=== PATIENT | male | born 1945 | race Caucasian/White ===

== ENCOUNTER 2018-12-30 19:25 | Inpatient (IN) | payer MEDICARE ==
[~2018-12-30] VITALS: Ht 177.8 cm; Wt 127.2 kg
--- NOTE | 2018-12-30 19:50 | NUR ---
Patient bib pvt ambulance from [facility] for med clearance. A/Ox4. Speech clear, speaks in complete sentences. No neuro deficits. Respiratory even and unlabored, no cough no sob. No cardiovascular distress noted. No GI/ distress noted. Patient in bed at lowest position, sr upx2, call light within reach. Fall precautions implemented per protocol.
[2018-12-30 20:06] LABS: BASOPHILS # (AUTO) 0.1 K/uL (0.0-8.0); BASOPHILS % (AUTO) 0.5 % (0.0-2.0); EOSINOPHILS # (AUTO) 0.5 K/uL (0.0-0.7); EOSINOPHILS % (AUTO) 4.8 % (0.0-7.0); HEMATOCRIT 38.5 % (36.7-47.1); LYMPHOCYTES # (AUTO) 2.2 K/uL (20.0-40.0); LYMPHOCYTES % (AUTO) 21.7 % (20.5-51.5); MEAN CORPUSCULAR HEMOGLOBIN 32.1 uug (23.8-33.4); MEAN CORPUSCULAR HGB CONC 34 g/dL (32.5-36.3); MEAN CORPUSCULAR VOLUME 95.2 fL (73.0-96.2); MONOCYTES # (AUTO) 1.5 K/uL (2.0-10.0); MONOCYTES % (AUTO) 14.9 % (0.0-11.0); NEUTROPHILS # (AUTO) 5.8 K/uL (1.8-8.9); NEUTROPHILS % (AUTO) 58.1 % (38.5-71.5); PLATELET COUNT (AUTO) 235 K/uL (152-348); RED BLOOD CELL COUNT(AUTO) 4.05 MIL/uL (4.06-5.63)
[2018-12-30 20:13] LABS: CARBON DIOXIDE 21 mmol/L (21-32); CHLORIDE 106 mmol/L (98-107); CREATININE 2.8 mg/dL (0.6-1.3); GLUCOSE 160 mg/dL (74-106); POTASSIUM 4.1 mmol/L (3.5-5.1); UREA NITROGEN, BLOOD 36 mg/dL (7-18)
[2018-12-30 20:19] LABS: ALANINE AMINOTRANSFERASE 15 U/L (16-63); ALKALINE PHOSPHATASE 75 U/L (50-136); ASPARTATE AMINOTRANSFERASE 10 U/L (15-37); BILIRUBIN,DIRECT 0.1 mg/dL (0.0-0.2); BILIRUBIN,TOTAL 0.5 mg/dL (0.2-1.0); ETHANOL < 3 MG/DL (0-0)
[2018-12-30 20:21] LABS: ACETAMINOPHEN < 2.0 ug/mL (10-30)
[2018-12-30] MEDS ORDERED: MAGN400O6 PO (20:21)
[2018-12-30] MEDS ORDERED: METO50TA16 PO (20:21)
[2018-12-30] MEDS ORDERED: POLY17PO4 PO (20:21)
[2018-12-30] MEDS ORDERED: SERT50TA PO (20:21)
[2018-12-30] MEDS ORDERED: TAMS-3 PO (20:21)
[2018-12-30] MEDS ORDERED: BISA10SU61 RC (20:21)
[2018-12-30] MEDS ORDERED: DOCU-141 PO (20:21)
[2018-12-30] MEDS ORDERED: IPRA3AMP22 IH (20:21)
[2018-12-30] MEDS ORDERED: LACT1TAB12 PO (20:21)
--- NOTE | 2018-12-30 20:41 | NUR ---
Jayy Priest here for evaluation.
[2018-12-30 20:42] LABS: THYROID STIMULATING HORMONE 2.676 mIU/mL (0.358-3.740)
--- NOTE | 2018-12-30 22:26 | NUR ---
Report given to BRODY Posada
[2018-12-30 22:31] LABS: *BILIRUBIN,URIN NEGATIVE (NEGATIVE); *BLOOD, URINE NEGATIVE (NEGATIVE); *CLARITY,URINE CLEAR (CLEAR); *COLOR,URINE YELLOW (YELLOW); *KETONES,URINE NEGATIVE (NEGATIVE); *UROBILINOGEN,URINE 0.2 E.U./dl (NORMAL); LEUKOCYTE ESTERASE ,URINE NEGATIVE (NEGATIVE); NITRITE, URINE NEGATIVE (NEGATIVE); PH,URINE 5.5 (5.0-8.0); UGLUCOSE NEGATIVE (NEGATIVE)
--- NOTE | 2018-12-30 22:39 | NUR ---
Patient transported to [facility]HU in stable condition.
[2018-12-30 22:44] LABS: BACTERIA,URINE NONE SEEN /HPF (NONE SEEN); RBC,URINE 0-3 /HPF (0-3); SQUAMOUS EPITHELIAL CELL,UR FEW /HPF (NONE SEEN)
[2018-12-30 22:46] LABS: *AMPHETAMINE, URINE NEGATIVE (NEGATIVE); *BARBITURATE, URINE NEGATIVE (NEGATIVE); *CANNABINOID, URINE NEGATIVE (NEGATIVE); *COCCAINE, URINE NEGATIVE (NEGATIVE); *OPIATE, URINE NEGATIVE (NEGATIVE); *PHENCYCLIDINE SCREEN,URINE NEGATIVE (NEGATIVE)
[2018-12-30 23:00] VITALS: BP 130/85
[2018-12-31] MEDS ORDERED: DOCUSATE SODIUM 100 MG CAPSULE PO PRN (00:45)
[2018-12-31] MEDS ORDERED: MIRALAX 17 GM POWD.PACK PO PRN (00:45)
[2018-12-31] MEDS ORDERED: ALBUTEROL SULFATE 2.5 MG/3 ML NEBU NEB PRN (00:45)
--- NOTE | 2018-12-31 01:07 | NUR ---
received to care, from the emergency room, on a voluntary admission, a transfer from the [facility]. according to the chart, he has been depressed, non compliant with care, refusing to shower, or accept help with hygiene. upon arrival, he denied SI, or the desire to harm himself. he agreed to contract for safety, while in the hospital. he appeared disheveled, but pleasant. cooperative with interview. he was assisted to bed at 2300, and went right to sleep. no distress noted.
[2018-12-31] MEDS ORDERED: MAGNESIUM HYDROXIDE 30 ML LIQUID UDC PO PRN (04:45)
[2018-12-31] MEDS ORDERED: TEMAZEPAM 7.5 MG CAPSULE PO PRN (04:45)
[2018-12-31] MEDS ORDERED: ACETAMINOPHEN 325 MG TABLET PO PRN (04:45)
[2018-12-31] MEDS ORDERED: MAG HYDROX/AL HYDROX/SIMETH 30 ML LIQUID UDC PO PRN (04:45)
[2018-12-31 07:30] VITALS: BP 133/86
[2018-12-31] MEDS: ACIDOPHILUS/BULGARICUS CHEW TAB PO SCH ×2 (08:13→16:02)
[2018-12-31] MEDS: METOPROLOL TARTRATE 50 MG TABLET PO SCH ×2 (08:15→21:44)
[2018-12-31] MEDS ORDERED: Medication Not On Formulary EA (Lactobacillus Acidophilus (Acidophilus) 1 EACH) PO SCH (09:00)
--- NOTE | 2018-12-31 11:50 | NUR ---
Initial Discharge Planning: Patient currently resides at [facility] [[address] [place] [address]; ]. Per Hospitality Coordinator Barrera, patient will be accepted back upon discharge although he does not have a bed hold. Patient spouse Marlene Yee [[phone]] agreeable with patient returning to facility upon discharge. Licensed Nurse Practitioner will continue to meet with patient, and collaborate with patient, family, and MD on a safe and proper discharge plan.
--- NOTE | 2018-12-31 13:45 | NUR ---
Social Work Note: This writer producer contacted patient spouse Marlene Yee [[phone]] to gather collateral information regarding patient's history. Patient spouse noted to be hyperverbal and grandiose during phone call in spite of constant redirection from this writer producer. 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 Human Services Worker provided education to spouse regarding average length of stay of patient contingent on patient progress and discussed role of Human Services Worker in discharge planning and providing appropriate referrals for patient. Spouse continued to verbalize patient and her have an IQ of a genius and stated patient had a longer stay at [facility] and that she expects the same at [facility]. After remaining on the phone with spouse for about 22 minutes, this writer producer attempted to politely end call by telling spouse I had a meeting to attend to - patient spouse remained hyperverbal and refusing to hang up. cabinet worker reassured her this writer producer would have MD call her back for any medication questions and politely ended the call.
[2018-12-31 15:07] VITALS: BP 126/58
--- NOTE | 2018-12-31 18:45 | NUR ---
GPS: RECEIVED PATIENT AOX2 PATIENT AMBULATORY AND SELF CARE , COMPLIANT WITH MEDICATION, PATIENT WAS ABLE TO TALK WITH ON THE PHONE, PATIENT REMAINS ISOLATIVE AND STAYS IN HIS ROOM, SEEN AND EXAMINED BY DR. FORD, WILL CONTINUE MONITOR
[2018-12-31 21:36] VITALS: BP 129/73
[2018-12-31] MEDS: ESCITALOPRAM OXALATE 10 MG TABLET PO SCH (21:44)
[2018-12-31] MEDS: TAMSULOSIN HCL 0.4 MG CAP.SR.24H PO SCH (21:44)
--- NOTE | 2018-12-31 22:00 | NUR ---
received to care, lying bed, asleep. easily awakened, but minimally interactive. denies SI, but states he feels depressed. compliant with medications and staff direction. as of 2199, he appears to be asleep. no distress noted. will continue to monitor closely.
--- NOTE | 2018-12-31 22:00 | NUR ---
slept 7.5 hours, total. continues to sleep. no distress noted. Addendum: 01/01/19 at 0632 by JASVIR GAMBOA LVN error/ wrong time documented
--- NOTE | 2019-01-01 06:00 | NUR ---
slept 7.5 hours, total. continues to sleep. no distress noted
[2019-01-01 07:30] VITALS: BP 154/93
[2019-01-01] MEDS: CLONAZEPAM 0.5 MG TABLET PO PRN (08:00)
[2019-01-01] MEDS: ACIDOPHILUS/BULGARICUS CHEW TAB PO SCH ×2 (08:00→16:29)
[2019-01-01] MEDS: METOPROLOL TARTRATE 50 MG TABLET PO SCH ×2 (08:00→20:42)
--- NOTE | 2019-01-01 09:46 | NUR ---
GPS: RECEIVED PATIENT AOX2, PATIENT ANXIOUS AND VERBALIZES" IM NOT FEELING WELL , MY STOMACH TROUBLING ME" PRN MEDICATION GIVEN, REPORTED TO CHARGE NURSE REGARDING BED DONT HAVE LOCK AND BEEN MOVING, CALLED AND SPOKE WITH HOUSE KEEPING AND ENGINEERING TO FIX THE BED, WILL CONTINUE MONITOR, PATIENT REMAINS ON BED , WILL CONTINUE MONITOR
--- NOTE | 2019-01-01 12:50 | NUR ---
called and spoke with AP regarding patients urine culture , orders made and carried out
[2019-01-01] MEDS: CEphaleXIN 250 MG CAPSULE PO SCH ×2 (13:10→21:52)
[2019-01-01] MEDS ORDERED: CEPHALEXIN MONOHYDRATE 125 MG/5 ML SUSPENSION 100ML NG SCH (14:00)
[2019-01-01 16:00] VITALS: BP 108/86
[2019-01-01 16:00] LABS: *BILIRUBIN,URIN NEGATIVE (NEGATIVE); *BLOOD, URINE NEGATIVE (NEGATIVE); *CLARITY,URINE CLEAR (CLEAR); *COLOR,URINE YELLOW (YELLOW); *KETONES,URINE NEGATIVE (NEGATIVE); *UROBILINOGEN,URINE 0.2 E.U./dl (NORMAL); LEUKOCYTE ESTERASE ,URINE NEGATIVE (NEGATIVE); NITRITE, URINE NEGATIVE (NEGATIVE); PH,URINE 5.5 (5.0-8.0); UGLUCOSE NEGATIVE (NEGATIVE)
[2019-01-01 16:08] LABS: *CREATININE,URINE 129.6 mg/dL (30-125); *URINE TOTAL PROTEIN RANDOM 69.2 mg/dL (<150/24HR)
--- NOTE | 2019-01-01 16:38 | NUR ---
GPS: PATIENT REMAIN CALM COOPERATIVE, COMPLIANT WITH MEDICATION, PATIENT STARTED ON ATB THERAPY , NO S/E NOTED, PATIENT ABLE TO TOLERATE MEDICINE, COLLECTED URINE SPECIMEN FOR UA ORDERED BY DR. HINKLE, WILL CONTINUE MONITOR
[2019-01-01 16:58] LABS: COARSE GRANULAR CASTS,URINE 0-3 /LPF; MUCUS,URINE FEW /LPF (0-FEW); SQUAMOUS EPITHELIAL CELL,UR FEW /HPF (NONE SEEN); WBC,URINE 0-3 /HPF (0-3)
[2019-01-01 20:34] VITALS: BP 118/64
[2019-01-01] MEDS: ESCITALOPRAM OXALATE 10 MG TABLET PO SCH (20:41)
[2019-01-01] MEDS: TAMSULOSIN HCL 0.4 MG CAP.SR.24H PO SCH (20:41)
--- NOTE | 2019-01-01 21:12 | NUR ---
PATIENT RECEIVED IN BED AWAKE. PATIENT AOX1-2, PATIENT COMPLIANT WITH MEDICATION, PATIENT EASILY IRRITATED, PATIENTS ANXIOUS ABOUT BEING IN THE HOSPITAL. PATIENT IS ISOLATIVE AND WITHDRAWN. WILL CONTINUE TO MONITOR. PATIENT DENIES PAIN AT THIS TIME, WILL CONTINUE TO MONITOR. BED IN LOWEST POSITION, BED LOCKED, AND BED ALARM ON WHILE IN BED.
[2019-01-02 06:09] LABS: BASOPHILS % (AUTO) 0.5 % (0.0-2.0); EOSINOPHILS # (AUTO) 0.4 K/uL (0.0-0.7); EOSINOPHILS % (AUTO) 5.1 % (0.0-7.0); HEMATOCRIT 37.4 % (36.7-47.1); HEMOGLOBIN 12.8 g/dL (12.5-16.3); LYMPHOCYTES # (AUTO) 1.8 K/uL (20.0-40.0); LYMPHOCYTES % (AUTO) 20.8 % (20.5-51.5); MEAN CORPUSCULAR HGB CONC 34 g/dL (32.5-36.3); MONOCYTES # (AUTO) 1.1 K/uL (2.0-10.0); MONOCYTES % (AUTO) 12.3 % (0.0-11.0); NEUTROPHILS # (AUTO) 5.3 K/uL (1.8-8.9); NEUTROPHILS % (AUTO) 61.3 % (38.5-71.5); PLATELET COUNT (AUTO) 250 K/uL (152-348); RED BLOOD CELL COUNT(AUTO) 3.98 MIL/uL (4.06-5.63); WHITE BLOOD COUNT (AUTO) 8.6 K/uL (3.6-10.2)
[2019-01-02 06:15] LABS: ALANINE AMINOTRANSFERASE 16 U/L (16-63); ALKALINE PHOSPHATASE 74 U/L (50-136); ASPARTATE AMINOTRANSFERASE 11 U/L (15-37); BILIRUBIN,TOTAL 0.8 mg/dL (0.2-1.0); CARBON DIOXIDE 23 mmol/L (21-32); CHLORIDE 108 mmol/L (98-107); CREATINE KINASE, TOTAL 29 U/L (39-308); CREATININE 2.7 mg/dL (0.6-1.3); GLUCOSE 110 mg/dL (74-106); MAGNESIUM 2.2 mg/dL (1.8-2.4); PHOSPHOROUS 4.1 mg/dL (2.5-4.9); POTASSIUM 4.4 mmol/L (3.5-5.1); TOTAL PROTEIN, SERUM 7.2 g/dL (6.4-8.2); UREA NITROGEN, BLOOD 35 mg/dL (7-18)
[2019-01-02] MEDS: CEphaleXIN 250 MG CAPSULE PO SCH ×3 (06:21→21:28)
[2019-01-02 07:30] VITALS: BP 142/86
[2019-01-02] MEDS: ASPIRIN 81 MG TAB.CHEW PO SCH (08:45)
[2019-01-02] MEDS: METOPROLOL TARTRATE 50 MG TABLET PO SCH ×2 (08:45→21:00)
[2019-01-02] MEDS: ACIDOPHILUS/BULGARICUS CHEW TAB PO SCH ×2 (08:45→17:39)
--- NOTE | 2019-01-02 10:00 | NUR ---
Gps/Administration Manager- Patient positive for MRSA nares, Permit Agent was informed ,orders received for bactroban suleman. apply to nares as ordered. Contact isolation observed and in progress.
[2019-01-02 16:00] VITALS: BP 125/67
[2019-01-02] MEDS: MUPIROCIN 2% OINT 22 GM TUBE NS SCH ×2 (17:45→20:07)
--- NOTE | 2019-01-02 18:34 | NUR ---
Gps/Butcher Scullion- Will be transfered to room # 315, report was given to Charis Hodges.
--- NOTE | 2019-01-02 20:00 | NUR ---
AWAKE, ALERT IRRITABLE WANT TO BE LEFT ALONE,MEDICATION GIVEN.MRSA OF THE NARES OBSERVED.
[2019-01-02] MEDS: TAMSULOSIN HCL 0.4 MG CAP.SR.24H PO SCH (20:08)
[2019-01-02] MEDS: ESCITALOPRAM OXALATE 10 MG TABLET PO SCH (21:28)
[2019-01-02 22:22] VITALS: BP 129/60
[2019-01-03] MEDS: CEphaleXIN 250 MG CAPSULE PO SCH (05:49)
--- NOTE | 2019-01-03 06:23 | NUR ---
SLEPT MOST OF THE NITE, NO COMPLAINTS MADE.
--- NOTE | 2019-01-03 08:00 | NUR ---
Awake, alert, oriented x 4, verbalized feeling bad. Agreed to vital signs monitoring and went back to sleep
[2019-01-03] MEDS: ACIDOPHILUS/BULGARICUS CHEW TAB PO SCH ×2 (10:31→17:51)
[2019-01-03] MEDS: ASPIRIN 81 MG TAB.CHEW PO SCH (10:31)
[2019-01-03] MEDS: MUPIROCIN 2% OINT 22 GM TUBE NS SCH ×2 (10:32→21:00)
[2019-01-03] MEDS: METOPROLOL TARTRATE 50 MG TABLET PO SCH ×2 (10:32→21:00)
[2019-01-03] MEDS: SULFAMETH/TRIMETH 800/160 MG TABLET PO SCH ×2 (12:34→22:01)
[2019-01-03] MEDS: CLONAZEPAM 0.5 MG TABLET PO PRN ×2 (12:34→17:51)
--- NOTE | 2019-01-03 12:35 | NUR ---
Verbalized not feeling well and anxious. Klonopin po given.
[2019-01-03 13:06] LABS: ALBUMIN 3.2 g/dL (2.9-4.4); ALPHA-1-GLOBULIN 0.2 g/dL (0.0-0.4); ALPHA-2-GLOBULIN 0.8 g/dL (0.4-1.0); BETA GLOBULIN 0.8 g/dL (0.7-1.3); GAMMA GLOBULIN 1.5 g/dL (0.4-1.8); GLOBULIN, TOTAL 3.3 g/dL (2.2-3.9); M-SPIKE 1.1 g/dL (Not Observed)
[2019-01-03 16:00] VITALS: BP 144/82
--- NOTE | 2019-01-03 18:00 | NUR ---
Feeling anxious again, Klonopin po given. Resting after
[2019-01-03 19:30] VITALS: BP 99/58
--- NOTE | 2019-01-03 20:00 | NUR ---
Patient received resting in bed, resting comfortably. Patient has no complaints of pain or discomfort at this time. Patient is calm and cooperative. Alls safety and fall precaution measures are in place. Call light and personal items are within reach at all times. Will continue to monitor.
--- NOTE | 2019-01-03 21:00 | NUR ---
Withheld prescribed BP medication due to low BP results: 99/58 HR 75.
[2019-01-03] MEDS: TAMSULOSIN HCL 0.4 MG CAP.SR.24H PO SCH (22:02)
[2019-01-03] MEDS: ESCITALOPRAM OXALATE 10 MG TABLET PO SCH (22:02)
--- NOTE | 2019-01-04 03:45 | NUR ---
Patient's called to get update regarding patient's stay. Information was provided, as requested. Nurse informed patient of 's call
--- NOTE | 2019-01-04 07:00 | NUR ---
Patient slept comfortably throughout night with no complaints of pain or acute distress/anxiety. VS are wnl and patient is stable. Patient has been compliant with all care and cooperative. All safety and fall precaution measures remain in place.
--- NOTE | 2019-01-04 07:30 | NUR ---
Patient received resting in bed calm and comfortable with no signs of distress ; patient has stable vital signs. Patient call light with in reach ; all safety devices in place.
[2019-01-04] MEDS: ACIDOPHILUS/BULGARICUS CHEW TAB PO SCH ×2 (09:02→18:06)
[2019-01-04] MEDS: ASPIRIN 81 MG TAB.CHEW PO SCH (09:02)
[2019-01-04] MEDS: MUPIROCIN 2% OINT 22 GM TUBE NS SCH ×2 (09:02→20:40)
[2019-01-04] MEDS: SULFAMETH/TRIMETH 800/160 MG TABLET PO SCH ×2 (09:02→20:38)
[2019-01-04] MEDS: METOPROLOL TARTRATE 50 MG TABLET PO SCH ×2 (09:12→09:21)
[2019-01-04 14:00] VITALS: BP 122/72
--- NOTE | 2019-01-04 19:11 | NUR ---
Patient calm and comfortable with no signs of distress. Patient request to speak to multiple times through out day. Patient medication compliant.
--- NOTE | 2019-01-04 20:00 | NUR ---
Report received. Patient is Awake and fully oriented. Presents unkempt and anxious. Denies SI and plan, denies HI, VH, AH. Reports no improvement in depression. Aware of UTI and MRSA status.
[2019-01-04] MEDS: ESCITALOPRAM OXALATE 10 MG TABLET PO SCH (20:38)
[2019-01-04] MEDS: TAMSULOSIN HCL 0.4 MG CAP.SR.24H PO SCH (20:38)
[2019-01-04] MEDS: METOPROLOL TARTRATE 25 MG TABLET PO SCH ×2 (20:39→20:59)
[2019-01-04 20:58] VITALS: BP 102/40
[2019-01-04] MEDS ORDERED: METOPROLOL TARTRATE 50 MG TABLET PO SCH (21:00)
--- NOTE | 2019-01-04 21:19 | NUR ---
bullpressor held for low BP 102/42
--- NOTE | 2019-01-04 21:30 | NUR ---
patient spoke with the on the phone, appears more anxious and agitated after the call. Was unhappy that she called.
[2019-01-04 21:48] VITALS: BP 122/73
--- NOTE | 2019-01-04 21:50 | NUR ---
BP rechecked: 122/73. patient claims he does not need to be on BP meds, refuses to take lopressor. Appears anxious, easily agitated, frustrated. Comfort and safety measures are in place.
--- NOTE | 2019-01-05 06:15 | NUR ---
Patient slept through the shift. Used urinal several times. No distress noted. Safety measures are in place.
[2019-01-05 08:00] VITALS: BP 138/72
--- NOTE | 2019-01-05 08:11 | NUR ---
Patient calm and comfortable with no signs of distress ; Patient called in the morning to speak to . Patient will continue to monitored.
[2019-01-05] MEDS: SULFAMETH/TRIMETH 800/160 MG TABLET PO SCH ×2 (08:37→20:00)
[2019-01-05] MEDS: MUPIROCIN 2% OINT 22 GM TUBE NS SCH ×2 (08:37→20:08)
[2019-01-05] MEDS: ACIDOPHILUS/BULGARICUS CHEW TAB PO SCH ×2 (08:37→18:15)
[2019-01-05] MEDS: ASPIRIN 81 MG TAB.CHEW PO SCH (08:37)
[2019-01-05 12:00] VITALS: BP 119/64
--- NOTE | 2019-01-05 19:30 | NUR ---
Patient calm and comfortable with no signs of distress; patient vital signs stable and has call light by bedside and safety devices with in reach.
[2019-01-05 19:59] VITALS: BP 124/88
[2019-01-05] MEDS: ESCITALOPRAM OXALATE 10 MG TABLET PO SCH (20:00)
[2019-01-05] MEDS: TAMSULOSIN HCL 0.4 MG CAP.SR.24H PO SCH ×2 (20:00→20:08)
[2019-01-05] MEDS: METOPROLOL TARTRATE 25 MG TABLET PO SCH (20:01)
--- NOTE | 2019-01-05 20:09 | NUR ---
patient was found resting in bed, fully oriented, denies pain, SOB, SI. Reports improvement in depression, declined snacks and beverages offer. Refused Flomax and Lopressor. Otherwise compliant with treatment plan. Comfort and safety provided.
--- NOTE | 2019-01-05 21:16 | NUR ---
New order for Lab and radiology came in. Patient refused x-rays and labs, asked to come back in the morning.
--- NOTE | 2019-01-06 07:00 | NUR ---
Patient slept through the shift. Used urinal several times. No distress noted. Patient refused lab draw this morning, asked to be drawn later. patient reports improving in depression. Safety measures are in place. Addendum: 01/06/19 at 0702 by MISHEL FOLEY RN refused snacks and beverages
--- NOTE | 2019-01-06 07:30 | NUR ---
RECEIVED PATIENT LAYING IN BED, ASLEEP. NO DISTRESS NOTED AT THIS TIME. BED IN LOWEST POSITION, SIDE RAILS UP X2,WILL CONTINUE TO MONITOR.
[2019-01-06] MEDS: CLONAZEPAM 0.5 MG TABLET PO PRN (08:37)
[2019-01-06] MEDS: SULFAMETH/TRIMETH 800/160 MG TABLET PO SCH ×2 (08:37→21:02)
[2019-01-06] MEDS: ACIDOPHILUS/BULGARICUS CHEW TAB PO SCH ×2 (08:38→17:00)
[2019-01-06] MEDS: ASPIRIN 81 MG TAB.CHEW PO SCH (08:38)
[2019-01-06] MEDS: MUPIROCIN 2% OINT 22 GM TUBE NS SCH ×2 (08:38→21:07)
[2019-01-06 08:57] LABS: BASOPHILS # (AUTO) 0.1 K/uL (0.0-8.0); BASOPHILS % (AUTO) 0.6 % (0.0-2.0); EOSINOPHILS # (AUTO) 0.3 K/uL (0.0-0.7); EOSINOPHILS % (AUTO) 3.4 % (0.0-7.0); HEMATOCRIT 40.4 % (36.7-47.1); HEMOGLOBIN 13.8 g/dL (12.5-16.3); LYMPHOCYTES # (AUTO) 2.1 K/uL (20.0-40.0); LYMPHOCYTES % (AUTO) 21.7 % (20.5-51.5); MEAN CORPUSCULAR HEMOGLOBIN 32.6 uug (23.8-33.4); MEAN CORPUSCULAR HGB CONC 34 g/dL (32.5-36.3); MEAN CORPUSCULAR VOLUME 95.2 fL (73.0-96.2); MONOCYTES # (AUTO) 1.1 K/uL (2.0-10.0); NEUTROPHILS # (AUTO) 5.9 K/uL (1.8-8.9); NEUTROPHILS % (AUTO) 62.3 % (38.5-71.5); PLATELET COUNT (AUTO) 256 K/uL (152-348); RED BLOOD CELL COUNT(AUTO) 4.24 MIL/uL (4.06-5.63); WHITE BLOOD COUNT (AUTO) 9.5 K/uL (3.6-10.2)
[2019-01-06 09:07] LABS: ALANINE AMINOTRANSFERASE 16 U/L (16-63); ALKALINE PHOSPHATASE 84 U/L (50-136); ASPARTATE AMINOTRANSFERASE 10 U/L (15-37); BILIRUBIN,TOTAL 0.7 mg/dL (0.2-1.0); CARBON DIOXIDE 21 mmol/L (21-32); CHLORIDE 107 mmol/L (98-107); CREATININE 3.2 mg/dL (0.6-1.3); GLUCOSE 102 mg/dL (74-106); POTASSIUM 4.3 mmol/L (3.5-5.1); TOTAL PROTEIN, SERUM 7.7 g/dL (6.4-8.2); UREA NITROGEN, BLOOD 32 mg/dL (7-18)
--- NOTE | 2019-01-06 18:24 | NUR ---
PATIENT SLEPT THROUGHOUT SHIFT. NO DISTRESS NOTED THROUGHOUT SHIFT. PATIENT REFUSED SHOWER. PATIENT REFUSED SOME MEDICATIONS.
--- NOTE | 2019-01-06 19:00 | NUR ---
Patient received awake in bed, with at bedside . Safety check done. Patient seems guarded and anxious at this time. is waiting for oncologist to arrive for further instructions. will continue to monitor.
[2019-01-06 20:00] VITALS: BP 134/80
[2019-01-06] MEDS: TAMSULOSIN HCL 0.4 MG CAP.SR.24H PO SCH (21:00)
[2019-01-06] MEDS: METOPROLOL TARTRATE 25 MG TABLET PO SCH (21:00)
[2019-01-06] MEDS: ESCITALOPRAM OXALATE 10 MG TABLET PO SCH (21:02)
--- NOTE | 2019-01-06 21:45 | NUR ---
Dr. Fox Oncologist came to speak to patient and regarding bone scan and reason of r/o multiple myeloma. Despite explanation and patient refuses to do bone scan.
--- NOTE | 2019-01-06 23:50 | NUR ---
HANDS OFF REPORT RECEIVED FROM GALDINO SKINNER. PT STABLE AND IN NO ACUTE DISTRESS. SAFETY AND COMFORT PROVIDED. PT ON CONTACT ISOLATION. WILL CONTINUE TO MONITOR.
--- NOTE | 2019-01-07 00:10 | NUR ---
Patient refused vital signs to be checked because he is sleeping and would not like to be bothered at this time. will continue to monitor.
--- NOTE | 2019-01-07 06:53 | NUR ---
Patient is alert and awake , slept really well last night a total of 8 hours , safety precautions checked and done. patient remians guarded and does not want to be bothered. Patient refused pm meds, lopressor and flomax, explained risks and benefits, verbalized understanding. Patient does not have any suicidal ideation or thoughts of hurting self. Per patient states he is feeling fair today but no improvemnts from yesterday. Endorsed to Charge nurse.
[2019-01-07 08:00] VITALS: BP 128/78
[2019-01-07 08:06] LABS: *IMMUNOGLOBULIN G, SERUM 716 mg/dL (700-1600); IMMUNOGLOBULIN A, SERUM 117 mg/dL (61-437); IMMUNOGLOBULIN M, SERUM 1355 mg/dL (15-143)
[2019-01-07] MEDS: ACIDOPHILUS/BULGARICUS CHEW TAB PO SCH ×2 (09:05→16:58)
[2019-01-07] MEDS: ASPIRIN 81 MG TAB.CHEW PO SCH (09:05)
[2019-01-07] MEDS: MUPIROCIN 2% OINT 22 GM TUBE NS SCH ×2 (09:05→20:28)
--- NOTE | 2019-01-07 10:16 | NUR ---
PATIENT SEEN AND EXAMINED BY SANJAY INIGUEZ LABORER CONCRETE PAVING WITH NEW ORDERS AND NOTED
[2019-01-07 15:13] VITALS: BP 134/72
--- NOTE | 2019-01-07 16:00 | NUR ---
DR FORD HERE TO SEE AND VISIT PATIENT WITH NEW ORDERS AND NOTED
--- NOTE | 2019-01-07 19:30 | NUR ---
Received patient in bed, no distress noted. No complaints of pain or SOB. On contact precaution for MRSA. Safety measures initiated. Will continue to monitor.
[2019-01-07 20:03] VITALS: BP 129/66
[2019-01-07] MEDS: SULFAMETH/TRIMETH 800/160 MG TABLET PO SCH (20:28)
[2019-01-07] MEDS: ESCITALOPRAM OXALATE 10 MG TABLET PO SCH (20:28)
[2019-01-07] MEDS: METOPROLOL TARTRATE 25 MG TABLET PO SCH (20:33)
[2019-01-07] MEDS: TAMSULOSIN HCL 0.4 MG CAP.SR.24H PO SCH (20:33)
[2019-01-08 04:52] VITALS: BP 128/65
--- NOTE | 2019-01-08 06:00 | NUR ---
Patient slept most of the shift. Patient has been withdrawn. Refused Lopressor and Flomax, educated patient, but still refused. Denies any SI. The , Corie, called and I updated her. She says that the BP medication needs to have a parameter and he should only take it if SBP is in >150 and he doesn't take Flomax at night because he doesn't want to keep waking up to use the restroom. Told her I would endorse to the morning shift to let the MD know. Safety measures given.
[2019-01-08 06:41] LABS: BASOPHILS # (AUTO) 0.1 K/uL (0.0-8.0); BASOPHILS % (AUTO) 0.9 % (0.0-2.0); EOSINOPHILS # (AUTO) 0.4 K/uL (0.0-0.7); EOSINOPHILS % (AUTO) 4.4 % (0.0-7.0); HEMATOCRIT 40.1 % (36.7-47.1); HEMOGLOBIN 13.7 g/dL (12.5-16.3); LYMPHOCYTES # (AUTO) 1.8 K/uL (20.0-40.0); LYMPHOCYTES % (AUTO) 20.7 % (20.5-51.5); MEAN CORPUSCULAR HEMOGLOBIN 31.9 uug (23.8-33.4); MEAN CORPUSCULAR HGB CONC 34 g/dL (32.5-36.3); MEAN CORPUSCULAR VOLUME 93.2 fL (73.0-96.2); MONOCYTES # (AUTO) 1.1 K/uL (2.0-10.0); MONOCYTES % (AUTO) 12.5 % (0.0-11.0); NEUTROPHILS # (AUTO) 5.2 K/uL (1.8-8.9); NEUTROPHILS % (AUTO) 61.5 % (38.5-71.5); PLATELET COUNT (AUTO) 252 K/uL (152-348); WHITE BLOOD COUNT (AUTO) 8.5 K/uL (3.6-10.2)
[2019-01-08 07:08] LABS: CARBON DIOXIDE 24 mmol/L (21-32); CHLORIDE 106 mmol/L (98-107); CREATININE 3.1 mg/dL (0.6-1.3); GLUCOSE 104 mg/dL (74-106); MAGNESIUM 2.1 mg/dL (1.8-2.4); PHOSPHOROUS 4.2 mg/dL (2.5-4.9); POTASSIUM 4.4 mmol/L (3.5-5.1); UREA NITROGEN, BLOOD 33 mg/dL (7-18)
[2019-01-08] MEDS: ASPIRIN 81 MG TAB.CHEW PO SCH (08:47)
[2019-01-08] MEDS: ACIDOPHILUS/BULGARICUS CHEW TAB PO SCH ×2 (08:47→16:31)
[2019-01-08] MEDS: MUPIROCIN 2% OINT 22 GM TUBE NS SCH ×2 (08:52→21:00)
--- NOTE | 2019-01-08 10:31 | NUR ---
Social Work Note: This auto service writer spoke with patient's - Marlene [[phone]]. Patient's is requesting a physical therapy evaluation. Trim Stencil Maker will follow up with this request. Trim Stencil Maker encouraged to discuss with patient compliance to individual and group therapy as patient has been refusing. Trim Stencil Maker discussed discharge planning with spouse - potential discharge planning for Sunday/Sunday to [facility]. Patient spouse is agreeable with this discharge plan.
--- NOTE | 2019-01-08 11:00 | NUR ---
RADIOLOGY DEPT HERE TO DO BONE SCAN FOR THIS PATIENT BUT HE REFUSED DESPITE EXPLAINATION THAT THIS IS HIS DOCTORS ORDERS.
[2019-01-08 11:25] VITALS: BP 114/61
--- NOTE | 2019-01-08 13:39 | NUR ---
ORDERS NOTED TO DISCHARGE PATIENT FROM ISOLATION AND THEN TO MOVE PATIENT DOWN TO THE MENTAL HEALTH UNIT FIRST FLOOR ROOM 139A CALLED AND NOTIFIED PATIENTS BIRD OF THE MOVE TO ANOTHER FLOOR AND OF THE VISITING HOURS WHICH IS DIFFERENT FROM MED/SURG FLOOR AND SHE EXPRESSED UNDERSTANDING.PER THE SR. MANAGER MHU NURSE WILL CALL ME FOR REPORT WHEN THE BED IS READY FOR THIS PATIENT AWAITING FOR THE CALL.
[2019-01-08 15:44] VITALS: BP 145/86
--- NOTE | 2019-01-08 16:00 | NUR ---
PATIENT IS REFUSING TO BE TRANSFERED TO THE MENTAL HEALTH UNIT FLOOR SO THE HEALTH INSPECTOR FOOD AND THE MHU PLATE MILL HAND AWARE AND THE PLAN IS THAT THE PATIENT WILL REMAIN IN HIS ROOM SINCE HE IS VOLUNTARY PATIENT AWARE.
--- NOTE | 2019-01-08 18:31 | NUR ---
COMPLIANT WITH MEDICATIONS EATING HIS DINNER AT THIS TIME WILL CONTINUE TO OBSERVE.
[2019-01-08 20:08] VITALS: BP 108/62
[2019-01-08] MEDS: TAMSULOSIN HCL 0.4 MG CAP.SR.24H PO SCH (21:00)
[2019-01-08] MEDS: METOPROLOL TARTRATE 25 MG TABLET PO SCH (21:00)
[2019-01-08] MEDS: ESCITALOPRAM OXALATE 10 MG TABLET PO SCH (21:11)
[2019-01-08] MEDS: SULFAMETH/TRIMETH 800/160 MG TABLET PO SCH (21:19)
--- NOTE | 2019-01-09 06:55 | NUR ---
PT SLEPT APPROX 8 HOURS DURING SHIFT. NO C/O PAIN. IN BED AT THIS TIME.
--- NOTE | 2019-01-09 08:00 | NUR ---
PT ASLEEP IN BED. NO SIGNS OF SOB OR ACUTE DISTRESS NOTED. BED IN LOW POSITION. CALL LIGHT WITHIN REACH. WILL CONTINUE TO MONITOR FOR SAFETY.
[2019-01-09] MEDS: ASPIRIN 81 MG TAB.CHEW PO SCH (09:26)
[2019-01-09] MEDS: ACIDOPHILUS/BULGARICUS CHEW TAB PO SCH ×2 (09:26→17:41)
[2019-01-09] MEDS: MUPIROCIN 2% OINT 22 GM TUBE NS SCH ×2 (09:26→20:53)
[2019-01-09 11:37] VITALS: BP 115/63
[2019-01-09 16:04] VITALS: BP 103/72
--- NOTE | 2019-01-09 18:00 | NUR ---
PPT IS RESTING COMFORTABLY IN BED. NO SOB OR ACUTE DISTRESS NOTED. PT IS COMPLIANT WITH MEDS. CALL LIGHT WITHIN REACH. PROVIDED SAFETY T/O SHIFT.
--- NOTE | 2019-01-09 19:30 | NUR ---
Patient alert and oriented x 2-3. Patient resting in bed with lights off. Patient is calm and compliant with VS and upon assessment. No C/O pain or SOB at this time. Safety protocols initiated. Will continue to monitor.
[2019-01-09] MEDS: METOPROLOL TARTRATE 25 MG TABLET PO SCH (20:38)
[2019-01-09 20:43] VITALS: BP 103/57
[2019-01-09] MEDS: ESCITALOPRAM OXALATE 10 MG TABLET PO SCH (20:53)
[2019-01-09] MEDS: SULFAMETH/TRIMETH 800/160 MG TABLET PO SCH (20:53)
[2019-01-09] MEDS: TAMSULOSIN HCL 0.4 MG CAP.SR.24H PO SCH (20:56)
[2019-01-10 05:07] VITALS: BP 115/59
--- NOTE | 2019-01-10 06:38 | NUR ---
Patient slept well throughout shift. No signs of acute distress noted. No complaints of pain or SOB. Took scheduled medication, except refused Flomax, Lopressor was held due to decreased BP. Safety measures given.
--- NOTE | 2019-01-10 07:42 | NUR ---
PT IS RESTING COMFORTABLY IN BED ,pt is talking to him self saying fuck you NO SOB OR ACUTE DISTRESS NOTED. PT IS COMPLIANT WITH MEDS. CALL LIGHT WITHIN REACH. PROVIDED SAFETY T/O SHIFT.
[2019-01-10] MEDS: ASPIRIN 81 MG TAB.CHEW PO SCH (08:29)
[2019-01-10] MEDS: ACIDOPHILUS/BULGARICUS CHEW TAB PO SCH ×2 (08:29→16:26)
[2019-01-10 11:34] VITALS: BP 117/65
--- NOTE | 2019-01-10 13:23 | NUR ---
Social Work Note Andrew SKINNER called for socia worker ot meet with patient's upstairs. Met with , Sandra who feels patient should not be discharged soon. She wants Dr Rankin to keep him to "figure everything out". Patient is lying and very passive in bed. Garo Morales told this service writer pt. is responding to internal stimuli. Pt. denies any hallucinations when asked about this. This service writer educated his that she would receive detailed discharge notes when he is discharged since she requested these. Advised her that Kim, assigned social and political studies professor is on vacation. Kim will follow up. This social and political studies professor conveyed 's concerns to Dr Rankin.
[2019-01-10 16:00] VITALS: BP 144/84
[2019-01-10 20:17] VITALS: BP 127/78
[2019-01-10] MEDS: TAMSULOSIN HCL 0.4 MG CAP.SR.24H PO SCH ×2 (20:47→20:56)
[2019-01-10] MEDS: ESCITALOPRAM OXALATE 10 MG TABLET PO SCH (20:47)
[2019-01-10] MEDS: METOPROLOL TARTRATE 25 MG TABLET PO SCH ×2 (20:48→20:56)
--- NOTE | 2019-01-10 22:30 | NUR ---
Patient received into care resting comfortably in bed. Patient has no complaints of pain or discomfort at this time. Will continue to monitor.
--- NOTE | 2019-01-11 06:00 | NUR ---
Patient slept throughout night, resting comfortably in bed. 30 minute visual checks for patient safety continue to be implemented. Patient denies any pain or acute distress at this time. Safety and fall precaution measures remain in place.
[2019-01-11] MEDS: ASPIRIN 81 MG TAB.CHEW PO SCH ×2 (08:03→08:41)
[2019-01-11] MEDS: DIAZEPAM 2 MG TABLET PO PRN ×2 (08:03→15:30)
[2019-01-11] MEDS: ACIDOPHILUS/BULGARICUS CHEW TAB PO SCH ×2 (08:03→16:21)
--- NOTE | 2019-01-11 08:47 | NUR ---
PT REFUSED THE MEDICATION CHARGE NURSE MADE AWARE
[2019-01-11 11:00] VITALS: BP 121/76
[2019-01-11 15:19] VITALS: BP 130/76
--- NOTE | 2019-01-11 19:20 | NUR ---
Received patient lying in bed. AAO3. In no acute distress. Denies any pain or SOB. Denies anxiety, SI/hallucination or delusion, but noted patient shouting/rambling to himself at times. No aggressive behavior noted. Safety measure initiated. Continue to monitor.
[2019-01-11 20:11] VITALS: BP 102/62
[2019-01-11] MEDS: ESCITALOPRAM OXALATE 10 MG TABLET PO SCH (20:30)
[2019-01-11] MEDS: TAMSULOSIN HCL 0.4 MG CAP.SR.24H PO SCH (20:32)
[2019-01-11] MEDS: METOPROLOL TARTRATE 25 MG TABLET PO SCH (20:32)
[2019-01-12 05:05] VITALS: BP 132/77
--- NOTE | 2019-01-12 06:27 | NUR ---
Slept well tonight. Remains AAO3. In no acute distress. Denies any pain or SOB. Denies anxiety, SI/hallucination or delusion. No aggressive behavior noted. Safety measure maintained. Continue to monitor.
[2019-01-12 06:44] LABS: CARBON DIOXIDE 22 mmol/L (21-32); CHLORIDE 106 mmol/L (98-107); CREATININE 2.9 mg/dL (0.6-1.3); GLUCOSE 105 mg/dL (74-106); POTASSIUM 4.3 mmol/L (3.5-5.1); UREA NITROGEN, BLOOD 35 mg/dL (7-18)
[2019-01-12] MEDS: ACIDOPHILUS/BULGARICUS CHEW TAB PO SCH ×2 (08:07→16:05)
[2019-01-12] MEDS: ASPIRIN 81 MG TAB.CHEW PO SCH (08:07)
[2019-01-12 09:36] VITALS: BP 110/54
[2019-01-12 15:30] VITALS: BP 106/64
--- NOTE | 2019-01-12 19:20 | NUR ---
Received patient lying in bed. AAOx4. In no acute distress. Denies any pain or SOB. Denies anxiety, SI/hallucination or delusion. No aggressive behavior noted. Calm and pleasant. Needs assessed and attended to. Safety measure initiated. Continue to monitor.
[2019-01-12 20:32] VITALS: BP 115/67
[2019-01-12] MEDS: TAMSULOSIN HCL 0.4 MG CAP.SR.24H PO SCH (20:40)
[2019-01-12] MEDS: METOPROLOL TARTRATE 25 MG TABLET PO SCH (20:40)
[2019-01-12] MEDS: ESCITALOPRAM OXALATE 10 MG TABLET PO SCH (20:40)
--- NOTE | 2019-01-13 06:14 | NUR ---
Remains AAOx3. Slept well last night. In no acute distress. Denies any pain or SOB. Denies anxiety, SI/hallucination or delusion. No aggressive behavior noted. Calm and cooperative with care. Safety measure maintained. Continue to monitor.
[2019-01-13] MEDS: ASPIRIN 81 MG TAB.CHEW PO SCH (08:26)
[2019-01-13] MEDS: ACIDOPHILUS/BULGARICUS CHEW TAB PO SCH (08:26)
--- NOTE | 2019-01-13 08:43 | NUR ---
AAOx3. In no acute distress. Denies any pain or SOB. Denies anxiety, SI/hallucination or delusion, says it hard to say how I feel right now. No aggressive behavior noted. Calm and cooperative with care. Safety measure reinforced. Continue to monitor.
--- NOTE | 2019-01-13 10:30 | NUR ---
Spoke with doctor Fabricio and spoke with Marlene on the phone. Dr Regalado said to Discharge patient from M[facility] and he will admit the patient to Med Surg floor for abdominal pain and dyspepsia and abdominal pain
[2019-01-13 11:08] VITALS: BP 102/59
--- NOTE | 2019-01-13 11:56 | NUR ---
Social Work Note/Psychiatric Discharge: Per nursing Sis, Dr. Regalado agrees to admit the patient to medical floor to follow up with medical concerns expressed by patient's Marlene. Dr. Rankin is now discharging patient from [facility] as patient was admitted as voluntary psychiatric patient on 12/30/18. Nursing informed.
--- NOTE | 2019-01-13 14:06 | NUR ---
Patient is being discharged to [facility] [address] Dr. Regalado conversation earlier today. Discharge instructions are given to patient and teaching provided. Patient signed all the documents. Belongings list signed as well, pictures taken Safety maintained this shift
[2019-01-13] MEDS ORDERED: ACET-2070 PO (15:54)
[2019-01-13] MEDS ORDERED: ALBU2.5V13 NEB (16:05)
[2019-01-13] MEDS ORDERED: ASPI81TA31 PO (16:05)
[2019-01-13] MEDS ORDERED: ACID1TAB12 PO (16:05)
[2019-01-13] MEDS ORDERED: ESCI20TA PO (16:05)
[2019-01-13] MEDS ORDERED: DIAZ5TAB4 PO (16:05)
[2019-01-13] MEDS ORDERED: MAG-55 PO (16:10)
== END 2019-01-13 14:15 | disposition short-term general hospital (02) | DRG 885 ==
LOC: ER 19:29 → GPS 22:28 → GPSOV3 01-02 19:12
PROVIDERS: ADMIT Psychiatry & Neurology Psychiatry; ATTEND Nurse Practitioner Acute Care
DX: F33.2 Major depressive disorder, recurrent severe without psychotic features (principal); J96.10 Chronic respiratory failure, unspecified whether with hypoxia or hypercapnia; N17.9 Acute kidney failure, unspecified; N18.4 Chronic kidney disease, stage 4 (severe); C90.00 Multiple myeloma not having achieved remission; Z68.41 Body mass index [BMI] 40.0-44.9, adult; M48.56XA Collapsed vertebra, not elsewhere classified, lumbar region, initial encounter for fracture; N40.0 Benign prostatic hyperplasia without lower urinary tract symptoms; J44.9 Chronic obstructive pulmonary disease, unspecified; Z22.322 Carrier or suspected carrier of Methicillin resistant Staphylococcus aureus; I44.0 Atrioventricular block, first degree; K57.90 Diverticulosis of intestine, part unspecified, without perforation or abscess without bleeding; Z79.899 Other long term (current) drug therapy; D47.2 Monoclonal gammopathy; K21.9 Gastro-esophageal reflux disease without esophagitis; M19.90 Unspecified osteoarthritis, unspecified site; F41.9 Anxiety disorder, unspecified; G89.29 Other chronic pain; E66.01 Morbid (severe) obesity due to excess calories; Z86.79 Personal history of other diseases of the circulatory system; Z87.891 Personal history of nicotine dependence; M51.36 Other intervertebral disc degeneration, lumbar region; M48.061 Spinal stenosis, lumbar region without neurogenic claudication; G47.33 Obstructive sleep apnea (adult) (pediatric); R73.9 Hyperglycemia, unspecified; I13.10 Hypertensive heart and chronic kidney disease without heart failure, with stage 1 through stage 4 chronic kidney disease, or unspecified chronic kidney disease; R10.9 Unspecified abdominal pain
CPT/HCPCS: 36415; 70030-TC; 71045; 80307; 82784; 83615; 83735; 83970; 84100; 84155; 84156; 84165; 84300; 84443; 85025; 85610; 85730; 86334; 87077; 87086; 93005; A4663; G0480; G0480-TC

== ENCOUNTER 2019-01-13 14:41 | Inpatient (IN) | payer MEDICARE ==
[~2019-01-13] VITALS: Ht 177.8 cm; Wt 127.0 kg
[~2019-01-13 14:41] MED LIST: BISA10SU61 RC; DOCU-141 PO; IPRA3AMP22 IH; LACT1TAB12 PO; MAGN400O6 PO; METO50TA16 PO; POLY17PO4 PO; TAMS-3 PO
[2019-01-13 15:12] VITALS: BP 138/88
[2019-01-13] MEDS ORDERED: ACET-2070 PO (15:54)
[2019-01-13] MEDS ORDERED: ESCI20TA PO (16:05)
[2019-01-13] MEDS ORDERED: DIAZ5TAB4 PO (16:05)
[2019-01-13] MEDS ORDERED: ALBU2.5V13 NEB (16:05)
[2019-01-13] MEDS ORDERED: ACID1TAB12 PO (16:05)
[2019-01-13] MEDS ORDERED: ASPI81TA31 PO (16:05)
[2019-01-13] MEDS ORDERED: MAG-55 PO (16:10)
[2019-01-13] MEDS ORDERED: DIAZEPAM 5 MG TABLET PO PRN (17:45)
[2019-01-13] MEDS ORDERED: Medication Not On Formulary EA (Mag Hydrox/Al Hydrox/Simeth (Maalox Advanced Max-Str Sus PO PRN (17:45)
[2019-01-13] MEDS ORDERED: MIRALAX 17 GM POWD.PACK PO PRN (17:45)
[2019-01-13] MEDS ORDERED: ALBUTEROL SULFATE 2.5 MG/ 0.5 ML NEBU NEB PRN (17:45)
[2019-01-13] MEDS ORDERED: Medication Not On Formulary EA (Acetaminophen 650 MG) PO PRN (17:45)
[2019-01-13] MEDS ORDERED: DOCUSATE SODIUM 100 MG CAPSULE PO PRN (17:45)
[2019-01-13] MEDS ORDERED: Medication Not On Formulary EA (Escitalopram Oxalate (Lexapro) 1 TAB) PO SCH (17:45)
[2019-01-13] MEDS ORDERED: ACETAMINOPHEN 325 MG TABLET PO PRN (18:00)
[2019-01-13] MEDS ORDERED: MAG HYDROX/AL HYDROX/SIMETH 30 ML LIQUID UDC PO PRN (18:00)
[2019-01-13 20:05] VITALS: BP 123/74
[2019-01-13] MEDS: ESCITALOPRAM OXALATE 10 MG TABLET PO SCH (20:25)
[2019-01-13] MEDS: ACIDOPHILUS/BULGARICUS CHEW TAB PO SCH (20:27)
[2019-01-13] MEDS: TAMSULOSIN HCL 0.4 MG CAP.SR.24H PO SCH (20:27)
[2019-01-14] MEDS: PANTOPRAZOLE SODIUM 40 MG TABLET.DR PO SCH (06:16)
[2019-01-14] MEDS ORDERED: Medication Not On Formulary EA (Acidophilus/Bulgaricus (Floranex Tablet) 1 EACH) PO SCH (09:00)
[2019-01-14] MEDS: ACIDOPHILUS/BULGARICUS CHEW TAB PO SCH ×2 (09:18→20:21)
[2019-01-14] MEDS: ASPIRIN EC 81 MG TABLET.DR PO SCH (09:18)
[2019-01-14 11:00] VITALS: BP 123/76
[2019-01-14 11:29] LABS: CARBON DIOXIDE 21 mmol/L (21-32); CHLORIDE 106 mmol/L (98-107); CREATININE 2.8 mg/dL (0.6-1.3); GLUCOSE 144 mg/dL (74-106); POTASSIUM 5.1 mmol/L (3.5-5.1); UREA NITROGEN, BLOOD 40 mg/dL (7-18)
[2019-01-14 11:41] LABS: ALANINE AMINOTRANSFERASE 24 U/L (16-63); ALKALINE PHOSPHATASE 84 U/L (50-136); ASPARTATE AMINOTRANSFERASE 28 U/L (15-37); BILIRUBIN,TOTAL 0.6 mg/dL (0.2-1.0); TOTAL PROTEIN, SERUM 7.7 g/dL (6.4-8.2)
[2019-01-14 12:43] LABS: BASOPHILS # (AUTO) 0.1 K/uL (0.0-8.0); BASOPHILS % (AUTO) 0.7 % (0.0-2.0); EOSINOPHILS # (AUTO) 0.4 K/uL (0.0-0.7); EOSINOPHILS % (AUTO) 4.4 % (0.0-7.0); HEMATOCRIT 40.9 % (36.7-47.1); HEMOGLOBIN 13.6 g/dL (12.5-16.3); LYMPHOCYTES # (AUTO) 2.7 K/uL (20.0-40.0); LYMPHOCYTES % (AUTO) 28.1 % (20.5-51.5); MEAN CORPUSCULAR HEMOGLOBIN 32.1 uug (23.8-33.4); MEAN CORPUSCULAR HGB CONC 33 g/dL (32.5-36.3); MEAN CORPUSCULAR VOLUME 96.6 fL (73.0-96.2); MONOCYTES # (AUTO) 1.4 K/uL (2.0-10.0); MONOCYTES % (AUTO) 14.8 % (0.0-11.0); NEUTROPHILS # (AUTO) 4.9 K/uL (1.8-8.9); PLATELET COUNT (AUTO) 250 K/uL (152-348); RED BLOOD CELL COUNT(AUTO) 4.23 MIL/uL (4.06-5.63); WHITE BLOOD COUNT (AUTO) 9.5 K/uL (3.6-10.2)
[2019-01-14 15:24] VITALS: BP 149/86
[2019-01-14] MEDS: TAMSULOSIN HCL 0.4 MG CAP.SR.24H PO SCH (20:22)
[2019-01-14] MEDS: ESCITALOPRAM OXALATE 10 MG TABLET PO SCH (20:22)
[2019-01-14 20:56] VITALS: BP 131/71
[2019-01-15 00:39] VITALS: BP 130/72
[2019-01-15 04:00] VITALS: BP 140/72
[2019-01-15] MEDS: PANTOPRAZOLE SODIUM 40 MG TABLET.DR PO SCH ×2 (06:07→17:12)
[2019-01-15 07:16] LABS: BASOPHILS % (AUTO) 0.6 % (0.0-2.0); EOSINOPHILS # (AUTO) 0.3 K/uL (0.0-0.7); EOSINOPHILS % (AUTO) 4.1 % (0.0-7.0); HEMATOCRIT 41.2 % (36.7-47.1); LYMPHOCYTES % (AUTO) 24.1 % (20.5-51.5); MEAN CORPUSCULAR HEMOGLOBIN 31.9 uug (23.8-33.4); MEAN CORPUSCULAR HGB CONC 34 g/dL (32.5-36.3); MONOCYTES # (AUTO) 1.2 K/uL (2.0-10.0); MONOCYTES % (AUTO) 14.7 % (0.0-11.0); NEUTROPHILS # (AUTO) 4.8 K/uL (1.8-8.9); NEUTROPHILS % (AUTO) 56.5 % (38.5-71.5); PLATELET COUNT (AUTO) 246 K/uL (152-348); RED BLOOD CELL COUNT(AUTO) 4.38 MIL/uL (4.06-5.63); WHITE BLOOD COUNT (AUTO) 8.5 K/uL (3.6-10.2)
[2019-01-15 07:19] LABS: ALANINE AMINOTRANSFERASE 22 U/L (16-63); ALKALINE PHOSPHATASE 79 U/L (50-136); ASPARTATE AMINOTRANSFERASE 17 U/L (15-37); BILIRUBIN,TOTAL 0.6 mg/dL (0.2-1.0); CARBON DIOXIDE 24 mmol/L (21-32); CHLORIDE 107 mmol/L (98-107); CREATININE 2.8 mg/dL (0.6-1.3); GLUCOSE 104 mg/dL (74-106); MAGNESIUM 2.2 mg/dL (1.8-2.4); PHOSPHOROUS 4.4 mg/dL (2.5-4.9); POTASSIUM 3.9 mmol/L (3.5-5.1); TOTAL PROTEIN, SERUM 7.4 g/dL (6.4-8.2); UREA NITROGEN, BLOOD 39 mg/dL (7-18)
[2019-01-15] MEDS: ACIDOPHILUS/BULGARICUS CHEW TAB PO SCH ×3 (08:34→21:13)
[2019-01-15] MEDS: ASPIRIN EC 81 MG TABLET.DR PO SCH (08:34)
[2019-01-15 11:09] VITALS: BP 119/55
[2019-01-15] MEDS: SUCRALFATE 1 G/10 ML LIQUID UDC GT SCH ×4 (12:08→21:13)
[2019-01-15 15:33] VITALS: BP 111/76
[2019-01-15 20:00] VITALS: BP 116/73
[2019-01-15] MEDS: TAMSULOSIN HCL 0.4 MG CAP.SR.24H PO SCH ×2 (21:00→21:13)
[2019-01-15] MEDS: ESCITALOPRAM OXALATE 10 MG TABLET PO SCH (21:13)
[2019-01-16 06:15] VITALS: BP 116/72
[2019-01-16 06:27] LABS: BASOPHILS # (AUTO) 0.1 K/uL (0.0-8.0); BASOPHILS % (AUTO) 0.7 % (0.0-2.0); EOSINOPHILS # (AUTO) 0.4 K/uL (0.0-0.7); EOSINOPHILS % (AUTO) 4.7 % (0.0-7.0); HEMATOCRIT 40.8 % (36.7-47.1); HEMOGLOBIN 13.8 g/dL (12.5-16.3); LYMPHOCYTES # (AUTO) 2.6 K/uL (20.0-40.0); LYMPHOCYTES % (AUTO) 30.6 % (20.5-51.5); MEAN CORPUSCULAR HEMOGLOBIN 31.6 uug (23.8-33.4); MEAN CORPUSCULAR HGB CONC 34 g/dL (32.5-36.3); MEAN CORPUSCULAR VOLUME 93.5 fL (73.0-96.2); MONOCYTES # (AUTO) 1.2 K/uL (2.0-10.0); MONOCYTES % (AUTO) 14.2 % (0.0-11.0); NEUTROPHILS # (AUTO) 4.3 K/uL (1.8-8.9); NEUTROPHILS % (AUTO) 49.8 % (38.5-71.5); PLATELET COUNT (AUTO) 255 K/uL (152-348); RED BLOOD CELL COUNT(AUTO) 4.36 MIL/uL (4.06-5.63); WHITE BLOOD COUNT (AUTO) 8.6 K/uL (3.6-10.2)
[2019-01-16] MEDS: SUCRALFATE 1 G/10 ML LIQUID UDC GT SCH ×4 (06:33→20:20)
[2019-01-16 06:34] LABS: CARBON DIOXIDE 26 mmol/L (21-32); CHLORIDE 107 mmol/L (98-107); CREATININE 2.9 mg/dL (0.6-1.3); GLUCOSE 102 mg/dL (74-106); POTASSIUM 4.3 mmol/L (3.5-5.1); UREA NITROGEN, BLOOD 36 mg/dL (7-18)
[2019-01-16] MEDS: PANTOPRAZOLE SODIUM 40 MG TABLET.DR PO SCH ×2 (08:53→16:49)
[2019-01-16] MEDS: ACIDOPHILUS/BULGARICUS CHEW TAB PO SCH ×2 (08:53→20:19)
[2019-01-16] MEDS: ASPIRIN EC 81 MG TABLET.DR PO SCH (08:53)
[2019-01-16] MEDS ORDERED: SUCR1ORA GT (11:08)
[2019-01-16] MEDS ORDERED: ACID1TAB4 PO (11:08)
[2019-01-16] MEDS ORDERED: PANT40TA2 PO (11:08)
[2019-01-16 11:30] VITALS: BP 116/73
[2019-01-16 15:12] VITALS: BP 136/87
[2019-01-16 20:00] VITALS: BP 131/74
[2019-01-16] MEDS: TAMSULOSIN HCL 0.4 MG CAP.SR.24H PO SCH (20:19)
[2019-01-16] MEDS: ESCITALOPRAM OXALATE 10 MG TABLET PO SCH (20:20)
[2019-01-17 06:28] VITALS: BP 117/70
[2019-01-17] MEDS: SUCRALFATE 1 G/10 ML LIQUID UDC GT SCH ×4 (06:32→21:00)
[2019-01-17] MEDS: ASPIRIN EC 81 MG TABLET.DR PO SCH (08:46)
[2019-01-17] MEDS: PANTOPRAZOLE SODIUM 40 MG TABLET.DR PO SCH ×2 (08:46→17:12)
[2019-01-17] MEDS: ACIDOPHILUS/BULGARICUS CHEW TAB PO SCH ×2 (08:46→21:00)
[2019-01-17 12:09] VITALS: BP 109/58
[2019-01-17 15:43] VITALS: BP 148/96
[2019-01-17 19:54] VITALS: BP 143/81
[2019-01-17] MEDS: TAMSULOSIN HCL 0.4 MG CAP.SR.24H PO SCH (21:00)
[2019-01-17] MEDS: ESCITALOPRAM OXALATE 10 MG TABLET PO SCH (21:00)
== END 2019-01-17 21:40 | DRG 384 ==
LOC: MEDSURG3 14:41 → TELE3 01-14 10:10 → MEDSURG3 01-15 13:35
PROVIDERS: ADMIT Internal Medicine; ATTEND Internal Medicine
DX: K27.9 Peptic ulcer, site unspecified, unspecified as acute or chronic, without hemorrhage or perforation (principal); N18.4 Chronic kidney disease, stage 4 (severe); Z68.41 Body mass index [BMI] 40.0-44.9, adult; F33.2 Major depressive disorder, recurrent severe without psychotic features; D68.59 Other primary thrombophilia; M48.56XA Collapsed vertebra, not elsewhere classified, lumbar region, initial encounter for fracture; K21.9 Gastro-esophageal reflux disease without esophagitis; K29.70 Gastritis, unspecified, without bleeding; Z86.79 Personal history of other diseases of the circulatory system; I13.10 Hypertensive heart and chronic kidney disease without heart failure, with stage 1 through stage 4 chronic kidney disease, or unspecified chronic kidney disease; E66.01 Morbid (severe) obesity due to excess calories; M19.90 Unspecified osteoarthritis, unspecified site; N40.0 Benign prostatic hyperplasia without lower urinary tract symptoms; J44.9 Chronic obstructive pulmonary disease, unspecified; Z96.652 Presence of left artificial knee joint; Z87.891 Personal history of nicotine dependence; K57.90 Diverticulosis of intestine, part unspecified, without perforation or abscess without bleeding; I12.9 Hypertensive chronic kidney disease with stage 1 through stage 4 chronic kidney disease, or unspecified chronic kidney disease; M51.36 Other intervertebral disc degeneration, lumbar region; M48.061 Spinal stenosis, lumbar region without neurogenic claudication; Z74.09 Other reduced mobility; Z79.899 Other long term (current) drug therapy
CPT/HCPCS: 36415; 70030-TC; 71045; 83690; 83735; 84100; 85025; 86677; 93307; G0378